=== PATIENT | female | born 1950 | race African-American/Black ===

== ENCOUNTER 2025-03-10 17:55 | Inpatient (IN) | payer MEDICARE, MEDICAID ==
[~2025-03-10] VITALS: Ht 167.6 cm; Wt 40.8 kg
[~2025-03-10 17:55] MED LIST: ALEN70TA79 PO; AMLO2.5T45 PO; ASPI-1406 PO; CARV6.2548 PO; CHOL400T15 PO; CLON0.1T PO; CLOP-31 PO; FURO40TA5 PO; HYDR25TA PO; LEVO75TA7 PO; LIP40 PO; SULF1TAB48 MT; TIOT18CA3 IH
[2025-03-10 18:13] VITALS: PULSE 72; RESP 15; O2SAT 99
[2025-03-10] MEDS: IPRATROPIUM BROMIDE (0.02%) 0.5MG/2.5ML NEB HHN SCH (18:14)
[2025-03-10] MEDS: ALBUTEROL (0.083%) 2.5MG/3ML NEB HHN SCH (18:14)
[2025-03-10 18:33] VITALS: PULSE 82; RESP 21
[2025-03-10] MEDS: METHYLPREDNISOLONE SOD SUCC 125MG/2ML (ACT-O-VIAL) IV ONE (18:33)
[2025-03-10 18:47] VITALS: PULSE 77; RESP 24; O2SAT 98
[2025-03-10 19:10] LABS: BASOPHILS % 1.0 % (0.0-2.0); EOSINOPHILS % 3.4 % (0.0-5.0); HEMATOCRIT. 40.9 % (36.0-48.0); HEMOGLOBIN. 13.7 g/dL (12.0-16.0); LYMPHOCYTES % 33.3 % (20.0-50.0); MEAN PLATELET VOLUME 8.0 fl (7.4-10.4); MONOCYTES % 6.7 % (2.0-8.0); NEUTROPHILS % 55.6 % (40.0-76.0); PLATELET 199 x1000/uL (130-400); RED BLOOD CELL COUNT 4.58 mill/uL (4.2-5.4); RED CELL DISTRIBUTION WIDTH 16.2 % (11.6-14.6)
[2025-03-10 19:25] LABS: CREATININE 1.3 mg/dL (0.6-1.0)
[2025-03-10 19:26] LABS: TROPONIN I HIGH SENSITIVITY 33 ng/L (3.0-34); UREA NITROGEN BLOOD 18 mg/dL (9-23)
[2025-03-10 19:27] LABS: ASPARTATE AMINOTRANSFERASE 18 IU/L (<34)
[2025-03-10 19:28] LABS: BILIRUBIN DIRECT 0.1 mg/dL (<=3.0); BILIRUBIN TOTAL 0.4 mg/dL (0.1-1.0); PROTEIN TOTAL 6.6 g/dL (6.0-8.3)
[2025-03-10] MEDS ORDERED: MAGNESIUM/ALUMINUM HYDROXIDE/SIMETHICONE 30ML UDC PO PRN (20:45)
[2025-03-10] MEDS ORDERED: IPRATROPIUM/ALBUTEROL 0.5-3(2.5)MG/3ML NEB HHN PRN (20:45)
[2025-03-10] MEDS ORDERED: ACETAMINOPHEN 325MG TABLET PO PRN ×2 (20:45)
[2025-03-10] MEDS ORDERED: DOCUSATE SODIUM 100MG CAPSULE PO PRN (20:45)
[2025-03-10 21:14] LABS: TROPONIN I HIGH SENSITIVITY 30 ng/L (3.0-34)
[2025-03-10] MEDS ORDERED: ALENDRONATE SODIUM 35MG TABLET PO SCH (22:30)
[2025-03-10 22:55] VITALS: BP 113/34; PULSE 65; RESP 20; TEMP 36.14
[2025-03-10] MEDS ORDERED: PNEUMOCOCCAL 20-VAL CONJ-DIP CRM 0.5ML IM ONE (23:45)
[2025-03-11] VITALS: BP 113/34; PULSE 65; RESP 20; TEMP 36.3; O2SAT 100
[2025-03-11 04:00] VITALS: BP 139/59; PULSE 73; RESP 18; TEMP 36.5; O2SAT 100
[2025-03-11] MEDS: ALENDRONATE SODIUM 35MG TABLET PO SCH (06:53)
[2025-03-11] MEDS: CLONIDINE 0.1MG TABLET PO SCH (06:54)
[2025-03-11] MEDS: LEVOTHYROXINE SODIUM 75MCG TABLET PO SCH (06:54)
[2025-03-11 08:00] VITALS: BP 106/49; PULSE 74; RESP 16; TEMP 36.2; O2SAT 98
[2025-03-11 08:00] LABS: BASOPHILS % 0.2 % (0.0-2.0); EOSINOPHILS % 0.1 % (0.0-5.0); HEMATOCRIT. 38.8 % (36.0-48.0); HEMOGLOBIN. 12.8 g/dL (12.0-16.0); LYMPHOCYTES % 24.4 % (20.0-50.0); MEAN PLATELET VOLUME 8.3 fl (7.4-10.4); MONOCYTES % 0.8 % (2.0-8.0); NEUTROPHILS % 74.5 % (40.0-76.0); PLATELET 188 x1000/uL (130-400); RED BLOOD CELL COUNT 4.31 mill/uL (4.2-5.4); RED CELL DISTRIBUTION WIDTH 16.0 % (11.6-14.6)
[2025-03-11 08:16] LABS: CREATININE 1.4 mg/dL (0.6-1.0); UREA NITROGEN BLOOD 22.0 mg/dL (9-23)
[2025-03-11 08:18] LABS: LDL CHOLESTEROL 136.0 mg/dL (5-100); TRIGLYCERIDE 58.0 mg/dL (0-150)
[2025-03-11 08:20] LABS: T4 FREE 0.91 ng/dL (0.89-1.76)
[2025-03-11 09:05] LABS: HEPATITIS C AB NON REACTIVE (Neg) (Negative)
[2025-03-11] MEDS: CLOPIDOGREL 75MG TABLET PO SCH (10:06)
[2025-03-11] MEDS: CARVEDILOL 6.25 MG TABLET PO SCH (10:06)
[2025-03-11] MEDS: CHOLECALCIFEROL (VIT D3) 400 UNIT TABLET PO SCH (10:06)
[2025-03-11] MEDS: ASPIRIN 81MG TABLET PO SCH (10:07)
[2025-03-11] MEDS: AMLODIPINE 2.5MG TABLET PO SCH (10:07)
[2025-03-11] MEDS: ENOXAPARIN 30MG/0.3ML SYR SUBCUT SCH (10:08)
[2025-03-11] MEDS: HYDROCHLOROTHIAZIDE 25MG TABLET PO SCH (10:18)
[2025-03-11] MEDS: FUROSEMIDE 20MG TABLET PO SCH (10:18)
[2025-03-11] MEDS: METHYLPREDNISOLONE SOD SUCC 40MG/ML (ACT-O-VIAL) IV SCH (10:30)
[2025-03-11] MEDS: FAMOTIDINE 20MG/2ML VIAL IV SCH (10:30)
[2025-03-11 12:30] VITALS: BP 129/60; PULSE 68; RESP 17; TEMP 36.2; O2SAT 100
[2025-03-11 16:00] VITALS: BP 112/54; PULSE 68; RESP 17; TEMP 36.4; O2SAT 99
[2025-03-11 20:00] VITALS: BP 128/66; PULSE 73; RESP 20; TEMP 36.8; O2SAT 99
[2025-03-11] MEDS: ATORVASTATIN CALCIUM 40MG TABLET PO SCH (21:29)
[2025-03-12] VITALS: BP 132/57; PULSE 52; RESP 20; TEMP 36.8; O2SAT 100
[2025-03-12 04:00] VITALS: BP 133/55; PULSE 53; RESP 20; TEMP 36.8; O2SAT 96
[2025-03-12 08:00] VITALS: BP 144/61; PULSE 55; RESP 18; TEMP 36.2; O2SAT 100
[2025-03-12 12:00] VITALS: BP 117/43; PULSE 57; RESP 20; TEMP 36.2; O2SAT 98
[2025-03-12 12:13] LABS: INFLUENZA TYPE A Presumptive Negative (Pres. Neg.)
[2025-03-12 12:14] LABS: INFLUENZA TYPE B Presumptive Negative (Pres. Neg.)
[2025-03-12 12:15] LABS: RESPIRATORY SYNCYTIAL VIRUS Not Detected (Not Detectd)
[2025-03-12 14:11] VITALS: BP 117/43; PULSE 55; RESP 18; TEMP 97.3
== END 2025-03-12 14:45 | disposition home or self-care (01) | DRG 189 ==
LOC: ER 17:55 → EDBEDREQ 20:21 → EDBEDREQTM 20:21 → 8WST 21:47
PROVIDERS: ADMIT Internal Medicine; ATTEND Internal Medicine
DX: J96.21 Acute and chronic respiratory failure with hypoxia (principal); N17.9 Acute kidney failure, unspecified; I13.0 Hypertensive heart and chronic kidney disease with heart failure and stage 1 through stage 4 chronic kidney disease, or unspecified chronic kidney disease; Z99.81 Dependence on supplemental oxygen; Z79.02 Long term (current) use of antithrombotics/antiplatelets; J44.1 Chronic obstructive pulmonary disease with (acute) exacerbation; E03.9 Hypothyroidism, unspecified; N18.9 Chronic kidney disease, unspecified; F17.210 Nicotine dependence, cigarettes, uncomplicated; Z79.899 Other long term (current) drug therapy; Z86.73 Personal history of transient ischemic attack (TIA), and cerebral infarction without residual deficits; Z88.0 Allergy status to penicillin
CPT/HCPCS: 36415; 71045; 80048; 80061; 80076; 83735; 83880; 84439; 84443; 84484; 85025; 86705; 87340; 87420; 87804; 93005; 94640; 99291; A4606; J1308; J1650; J2919